=== PATIENT | female | born 1990 | race African-American/Black ===

== ENCOUNTER 2017-01-07 14:58 | Inpatient (IN) | payer MEDICAID ==
[2017-01-07] MEDS ORDERED: MINERAL OIL PO PRN (15:01)
[2017-01-07] MEDS ORDERED: BRETHINE IVP PRN (15:01)
[2017-01-07] MEDS ORDERED: BRETHINE SUB-Q PRN (15:01)
[2017-01-07] MEDS ORDERED: SUBLIMAZE IV PRN (15:01)
[2017-01-07] MEDS ORDERED: XYLOCAINE 2% INFILTRATI ONE (15:01)
--- NOTE | 2017-01-07 15:10 | History and Physical Report ---
History of Present Illness Date of examination: 01/07/17 Date of admission: 01/07/17 14:58 Chief complaint: I was 5 cm in the office today History of present illness: 26 y/o now 40.3 weeks, now 5 cm in the office today. 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 GBS neg. Past History Past Medical History: other (Hypothyroidism) Past Surgical History: no surgical history [employer] History: trichomonas Family/Genetic History: none Social history: no significant social history - Obstetrical History Expected Date of Delivery: 01/04/17 Actual Gestation: 40 Week(s) 3 Day(s) : 3 Number of Living Children: 2 Medications and Allergies Allergies Allergy/AdvReac Type Severity Reaction Status Date / Time No Known Allergies Allergy Unverified 01/07/17 15:38 Home Medications Medication Instructions Recorded Confirmed Last Taken Type Levothyroxine [Synthroid] 25 mcg PO QAM 01/07/17 01/07/17 01/07/17 History Pnv with Ca,No.72/Iron/FA [Pnv 1 each PO ONCE 01/07/17 01/07/17 01/07/17 History Plus Multivit Tab] Review of Systems All systems: negative - Physical Exam Breasts: Positive: deferred Cardiovascular: Regular rate Lungs: Positive: Clear to auscultation Abdomen: Positive: soft Genitourinary (Female): Positive: normal external genitalia Vulva: both: normal Vagina: Positive: normal moisture Uterus: Positive: enlarged Anus/Rectum: Positive: normal perianal skin Deep Tendon Reflex Grade: Normal +2 - Obstetrical FHR: category 1 Uterine Contraction Monitor Mode: External Cervical Dilatation: 5 (arom, clear fluid 1700) Cervical Effacement Percentage: 80 station: 0 Uterine Contraction Pattern: Irregular Uterine Contraction Intensity: Mild Results Result Diagrams: 01/07/17 15:45 All other labs normal. Assessment and Plan A: 40.2 weeks at 5 cm P: Labor augmentation
[2017-01-07] MEDS ORDERED: ePHEDrine SULFATE IV PRN ×2 (15:45→19:19)
[2017-01-07] MEDS ORDERED: PITOCin/NS 20 UNIT/1000ML DRIP 20 UNITS/1,000 ML BAG IV SCH (16:00)
[2017-01-07] MEDS ORDERED: PITOCin/NS 30 UNIT/500ML 30 UNITS/500 ML BAG IV SCH (16:00)
[2017-01-07 16:02] LABS: Hematocrit 39.3 % (30.3-42.9); Hemoglobin 12.9 gm/dl (10.1-14.3); Mean Corpuscular HGB Conc 33 % (30-34); Mean Corpuscular Hemoglobin 28 pg (28-32); Mean Corpuscular Volume 86 fl (79-97); Platelet Count 207 K/mm3 (140-440); Red Blood Count 4.59 M/mm3 (3.65-5.03); Red Cell Distribution Width 13.8 % (13.2-15.2); White Blood Count 11.2 K/mm3 (4.5-11.0)
[2017-01-07] MEDS: PITOCin/NS 30 UNIT/500ML 30 UNITS/500 ML BAG IV SCH ×4 (16:35→18:37)
[2017-01-07] MEDS: LACTATED RINGERS 1,000 ML IV SCH ×3 (16:42→18:38)
[2017-01-07] MEDS ORDERED: ePHEDrine SULFATE ONE (18:21)
[2017-01-07] MEDS ORDERED: fentaNYL-BUPIV 2 MCG/ML-0.125% 200 MCG/100 ML BAG EPIDURAL ONE (19:15)
[2017-01-07] MEDS ORDERED: NARCAN 2 MG/2 ML IV PRN (19:19)
--- NOTE | 2017-01-07 19:20 | Anesthesia Consultation ---
Anesthesia Consult and Med Hx Date of service: 01/07/17 - Airway Anesthetic Teeth Evaluation: Good ROM Head & Neck: Adequate Mental/Hyoid Distance: Adequate Mallampati Class: Class II Intubation Access Assessment: Probably Good - Pulmonary Exam CTA: Yes - Cardiac Exam Cardiac Exam: RRR - Pre-Operative Health Status ASA Pre-Surgery Classification: ASA2 Proposed Anesthetic Plan: Epidural, Spinal - Pulmonary Hx Asthma: No COPD: No Hx Pneumonia: No - Cardiovascular System Hx Hypertension: No - Central Nervous System Hx Seizures: No Hx Psychiatric Problems: No - Endocrine Hx Renal Disease: No Hx End Stage Renal Disease: No Hx Hypothyroidism: Yes (2011; synthroid) Hx Hyperthyroidism: No - Hematic Hx Anemia: No Hx Sickle Cell Disease: No - Other Systems Hx Alcohol Use: No
[2017-01-07] MEDS ORDERED: ZOFRAN ONE (19:26)
[2017-01-07] MEDS ORDERED: ZOFRAN IV ONE (19:39)
--- NOTE | 2017-01-07 19:58 | Procedure Note ---
OB Delivery Note - Delivery Date of Delivery: 01/07/17 Surgeon: CAIO SANCHEZ Estimated blood loss: 100cc - Vaginal Delivery presentation: vertex Delivery position: OA Delivery augmentation: rupture of membranes, pitocin Delivery monitor: external FHT Route of delivery: Delivery placenta: spontaneous Delivery cord: nuchal cord, 3 umbilical vessels Episiotomy: none Delivery laceration: none Anesthesia: epidural Delivery comments: of a viable female 7# 11 oz on January 07 @ 1945 over intact perineum. Nuchal cord x1 loose reduced. 9/9.FF@ U-2, lochia small. MOther and baby doing well - A at 1 minute: 9 at 5 minutes: 9
[2017-01-07] MEDS ORDERED: BENADRYL PO PRN (19:59)
[2017-01-07] MEDS ORDERED: LANSINOH TP PRN (19:59)
[2017-01-07] MEDS ORDERED: PHENERGAN PO PRN (19:59)
[2017-01-07] MEDS ORDERED: TYLENOL PO PRN (19:59)
[2017-01-07] MEDS ORDERED: SODIUM CHLORIDE FLUSH SYRINGE 10 ML IV SCH (20:00)
[2017-01-07] MEDS ORDERED: fentaNYL-BUPIV 2 MCG/ML-0.125% 200 MCG/100 ML BAG EPIDURAL SCH (20:00)
[2017-01-07] MEDS: MOTRIN PO SCH (21:26)
[2017-01-08] MEDS: MOTRIN PO SCH ×4 (06:56→17:48)
[2017-01-08 08:52] LABS: Hematocrit 34.7 % (30.3-42.9); Hemoglobin 11.4 gm/dl (10.1-14.3)
[2017-01-08] MEDS: NORCO 5/325 PO PRN (09:20)
--- NOTE | 2017-01-08 12:04 | Progress Note ---
Subjective Date of service: 01/08/17 Interval history: 1st day after normal vaginal delivery Patient is in the bed, comfortable. Pain is well controlled with pain meds. No pruritus . Ambulated well. No residual neurological deficit. No anesthesia complications Objective - Constitutional Vitals: Vital Signs - 12hr 01/08/17 01/08/17 04:15 08:00 Temperature 98.0 F 98.6 F Pulse Rate [ 66 54 L From Monitor] Respiratory 20 18 Rate Blood Pressure 105/52 135/67 [Left Arm] - Labs CBC & Chem 7: 01/08/17 08:30 Labs: Abnormal lab results 01/07/17 Range/Units 15:45 WBC 11.2 H (4.5-11.0) K/mm3
--- NOTE | 2017-01-08 12:29 | Progress Note ---
Assessment and Plan A: PPD #1 - stable P; Discharge home in am Subjective - Subjective Date of service: 01/08/17 Principal diagnosis: Interval history: 26 y/o now 40.3 weeks, now 5 cm in the office today. 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 GBS neg. Patient reports: appetite normal [place]: doing well Objective - Vital Signs Latest vital signs: Vital Signs Temp Pulse Pulse Resp BP BP Pulse Ox 01/08/17 08:00 98.6 F 54 L 18 135/67 01/08/17 04:15 98.0 F 66 20 105/52 01/07/17 22:45 97.7 F 69 20 149/87 01/07/17 21:23 70 115/72 01/07/17 21:08 71 133/69 01/07/17 20:53 73 122/65 01/07/17 20:38 68 128/84 01/07/17 20:23 75 132/74 01/07/17 20:08 67 129/69 01/07/17 20:05 71 128/74 01/07/17 19:32 68 99 0505/17 19:27 69 99 0517 19:24 64 119/77 050517 19:22 69 100 050517 19:17 67 100 0505/17 19:12 68 100 05 19:07 67 99 0505/17 19:02 71 100 0517 18:57 69 99 0505/17 18:53 68 111/67 05 18:52 67 111/68 99 0505/17 18:49 72 115/64 050517 18:47 72 123/71 99 05/17 18:42 71 141/78 100 0505/17 18:37 62 132/70 100 050517 18:32 74 100 0505/17 17:35 18 05 16:34 75 97 0505/17 16:29 81 97 0505/17 16:24 74 97 05/17 16:19 74 96 0505/17 16:14 77 97 05/05/17 16:09 76 96 0505/17 16:04 72 97 0505/17 15:59 83 97 05/05/17 15:54 80 97 01/07/17 15:49 79 97 01/07/17 15:44 83 96 01/07/17 15:39 97.9 F 84 86 18 120/77 95 01/07/17 15:34 85 95 01/07/17 15:29 83 94 01/07/17 15:24 91 H 94 01/07/17 15:22 89 94 01/07/17 15:19 92 H 120/77 94 Intake and Output 01/07/17 01/08/17 01/08/17 22:59 06:59 14:59 Intake Total 2240 480 480 Output Total 900 700 Balance 2240 -420 -220 Intake: IV 2000 Lactated Ringers 1,000 ml 2000 @ 125 mls/hr IV DIRECT ISELA Rx#:[id number] Oral 240 480 480 Output: Urine 900 700 Void 900 700 Other: Total, Intake Amount 240 240 480 Total, Output Amount 400 700 # Voids Void 1 Weight 197 lb - Exam Breasts: Present: deferred Cardiovascular: Present: Regular rate Abdomen: Present: soft Vulva: both: normal Uterus: Present: fundal height below umbilicus Extremities: Present: normal Deep Tendon Reflex Grade: Normal +2 - Labs Labs: Abnormal lab results 01/07/17 Range/Units 15:45 WBC 11.2 H (4.5-11.0) K/mm3
--- NOTE | 2017-01-08 12:31 | Discharge Summary ---
Providers - Providers Date of Admission: 01/07/17 14:58 Date of discharge: 01/09/17 Attending physician: ILIANA LARA MD Primary care physician: ILIANA LARA MD Hospitalization Delivery: Episiotomy: none Laceration: none Other procedures: none complications: none Discharge diagnosis: IUP at term delivered [place] baby: female Condition at discharge: Good Disposition: DISCHARGED TO HOME OR SELFCARE Plan - Provider Discharge Summary Activity: routine, no sex for 6 weeks, no heavy lifting 4 weeks, no strenuous exercise Diet: routine Instructions: routine Additional instructions: [] Smoking cessation referral if applicable(refer to patient education folder for contact #) [] Refer to [facility] Book[facility] Call your doctor immediately for: * Fever > 100.5 * Heavy vaginal bleeding ( >1 pad per hour) * Severe persistent headache * Shortness of breath * Reddened, hot, painful area to leg or breast * Drainage or odor from incision. * Keep incision clean and dry at all times and follow doctor's instructions regarding bathing/showering - Follow up plan Follow up: [facility] [Provider Group] - 6 Weeks
[2017-01-09] MEDS: NORCO 5/325 PO PRN (00:43)
[2017-01-09] MEDS: MOTRIN PO SCH ×3 (00:43→12:14)
[2017-01-09 17:40] VITALS: BP 103/66
== END 2017-01-09 17:30 | disposition home or self-care (01) | DRG 775 ==
LOC: LD 14:58 → OB 22:13
PROVIDERS: ADMIT Obstetrics & Gynecology; ATTEND Obstetrics & Gynecology
PROC: 10E0XZZ Delivery of Products of Conception, External Approach (ICD-10-PCS; principal; 2017-01-07)
PROC: 3E0S3CZ (ICD-10-PCS; 2017-01-07)
PROC: 00HU33Z Insertion of Infusion Device into Spinal Canal, Percutaneous Approach (ICD-10-PCS; 2017-01-07)
DX: O69.81X0 Labor and delivery complicated by cord around neck, without compression, not applicable or unspecified (principal); O99.284 Endocrine, nutritional and metabolic diseases complicating childbirth; E03.9 Hypothyroidism, unspecified; Z3A.40 40 weeks gestation of pregnancy; Z37.0 Single live birth
CPT/HCPCS: 36415; 85014; 85018; 85027; 86850; 86900; 86901; J2405; J2590; J3010; J7120

== ENCOUNTER 2019-01-14 01:59 | Inpatient (IN) | payer MEDICAID ==
[2019-01-14] MEDS ORDERED: MINERAL OIL PO PRN (02:52)
[2019-01-14] MEDS ORDERED: BRETHINE SUB-Q PRN (02:52)
[2019-01-14] MEDS ORDERED: SUBLIMAZE IV PRN (02:52)
[2019-01-14] MEDS ORDERED: XYLOCAINE 2% INFILTRATI ONE (02:52)
[2019-01-14] MEDS ORDERED: PITOCin/NS 30 UNIT/500ML 30 UNITS/500 ML BAG IV SCH ×2 (03:00→08:00)
[2019-01-14] MEDS ORDERED: PITOCin/NS 20 UNIT/1000ML DRIP 20 UNITS/1,000 ML BAG IV SCH (03:00)
--- NOTE | 2019-01-14 03:00 | History and Physical Report ---
History of Present Illness Date of examination: 01/14/19 Date of admission: 01/14/19 02:50 Chief complaint: Labor History of present illness: 28 year old presented to L&D in labor. Patient denies leaking of fluid or vaginal bleeding. Patient reports active movement. LMP 07/09/2018. EDC 01/18/2019. Patient received care at [facility]; limited records are available. significant for the following: trichomonas, late care, limited care. labs are as follows: O+, antibody screen negative, pap negative, rubella immune, RPR nonreactive, hepatitis B surface antigen negative, HIV negative, hemoglobin electrophoresis AA, GC negative, CT negative, trichomonas positive, GBS negative, hemoglobin A1C 5.4. Past History Past Medical History: thyroid disease (subclinical hypothyroidism), other (Vitamin D deficiency) Past Surgical History: no surgical history [facility]DER History: trichomonas (treated during ). denies: abnormal PAP smear, chlamydia, gonorrhea, hepatitis B, hepatitis C, herpes, HIV, syphilis Family/Genetic History: diabetes, cancer Social history: lives with family, full code. denies: smoking, alcohol abuse, prescription drug abuse, IV drug use - Obstetrical History Expected Date of Delivery: 01/18/19 Actual Gestation: 39 Week(s) 3 Day(s) : 4 Para: 3 Hx # Term Pregnancies: 4 Number of Pregnancies: 0 Spontaneous Abortions: 0 Induced : 0 Number of Living Children: 3 Medications and Allergies Allergies Allergy/AdvReac Type Severity Reaction Status Date / Time No Known Allergies Allergy Unverified 01/07/17 15:38 Home Medications Medication Instructions Recorded Confirmed Last Taken Type Levothyroxine [Synthroid] 25 mcg PO QAM 01/07/17 01/07/17 01/07/17 History Pnv,Calcium 72/Iron/Folic Acid 1 each PO ONCE 01/07/17 01/07/17 01/07/17 History [Pnv Plus Multivit Tab] Active Meds: Active Medications Ephedrine Sulfate (Ephedrine Sulfate) 10 mg IV Q2M PRN PRN Reason: Hypotension Fentanyl (Sublimaze) 100 mcg IV Q2H PRN PRN Reason: Labor Pain Oxytocin/Sodium Chloride (Pitocin/Ns 20 Unit/1000ml Drip) 20 units in 1,000 mls @ 125 mls/hr IV DIRECT ISELA Oxytocin/Sodium Chloride (Pitocin/Ns 30 Unit/500ml) 30 units in 500 mls @ 1 mls/hr IV TITR ISELA; Protocol Lactated Ringer's (Lactated Ringers) 1,000 mls @ 125 mls/hr IV DIRECT ISELA Mineral Oil (Mineral Oil) 30 ml PO QHS PRN PRN Reason: Constipation Terbutaline Sulfate (Brethine) 0.25 mg SUB-Q ONCE PRN PRN Reason: Hyperstimulation/Hypertonicity Review of Systems All systems: negative (contractions) - Vital Signs Vital signs: Vital Signs Pulse BP 81 121/79 01/14/19 02:16 01/14/19 02:16 Temp Pulse Resp BP Pulse Ox 81 121/79 01/14/19 02:16 01/14/19 02:16 - Physical Exam Abdomen: Positive: normal appearance, soft. Negative: distention, tenderness, guarding, rigidity Genitourinary (Female): Positive: normal external genitalia, normal perenium. Negative: perineal/vulvar lesions Vagina: Positive: normal moisture Uterus: Positive: enlarged. Negative: tender Anus/Rectum: Positive: normal perianal skin Extremities: Positive: normal. Negative: tenderness, edema - Obstetrical FHR: category 1 Uterine Contraction Monitor Mode: External Cervical Dilatation: 4 Cervical Effacement Percentage: 60 station: -2 Uterine Contraction Pattern: Regular Uterine Contraction Intensity: Moderate Results All other labs normal. Assessment and Plan A: at 39 weeks, 3 days gestation. GBS negative. Labor. P: Admit. Continuous EFM. Anticipate vaginal .
[2019-01-14] MEDS: LACTATED RINGERS 1,000 ML IV SCH ×2 (04:25→05:37)
[2019-01-14 04:58] LABS: Hematocrit 35.1 % (30.3-42.9); Hemoglobin 11.8 gm/dl (10.1-14.3); Mean Corpuscular HGB Conc 34 % (30-34); Mean Corpuscular Volume 80 fl (79-97); Platelet Count 205 K/mm3 (140-440); Red Blood Count 4.41 M/mm3 (3.65-5.03); Red Cell Distribution Width 14.4 % (13.2-15.2)
--- NOTE | 2019-01-14 08:08 | Event Note ---
Date: 01/14/19 at 39 weeks, 3 days gestation in labor. Patient requests pain medication. SVE 4.5/60/-2. Patient states contractions are every 2-5 minutes. Pitocin augmentation orders put in for pt. Discussed with patient risks/benefits of augmentation of labor with Pitocin. Patient consented to augmentation of labor with Pitocin.
[2019-01-14] MEDS ORDERED: NARCAN 2 MG/2 ML IV PRN (14:07)
--- NOTE | 2019-01-14 14:07 | Anesthesia Consultation ---
Anesthesia Consult and Med Hx - Airway Anesthetic Teeth Evaluation: Good ROM Head & Neck: Adequate Mental/Hyoid Distance: Adequate Mallampati Class: Class II Intubation Access Assessment: Probably Good - Pulmonary Exam CTA: Yes - Cardiac Exam Cardiac Exam: RRR - Pre-Operative Health Status ASA Pre-Surgery Classification: ASA2 Proposed Anesthetic Plan: Epidural - Pulmonary Hx Smoking: No Hx Asthma: No Hx Respiratory Symptoms: No COPD: No Hx Pneumonia: No - Cardiovascular System Hx Hypertension: No Hx Heart Attack/AMI: No Hx Angina: No Hx Percutaneous Transluminal Coronary Angioplasty (PTCA): No Hx Cardia Arrhythmia: No Hx Pacemaker: No Hx Internal Defibrillator: No Hx Valvular Heart Disease: No Hx Heart Murmur: No Hx Peripheral Vascular Disease: No - Central Nervous System Hx Neuromuscular Disorder: No Hx Seizures: No CVA: No Hx Back Pain: No Hx Psychiatric Problems: No - Endocrine Hx Renal Disease: No Hx End Stage Renal Disease: No Hx Cirrhosis: No Hx Liver Disease: No Hx Insulin Dependent Diabetes: No Hx Hypothyroidism: Yes (2011) Hx Hyperthyroidism: No - Hematic Hx Anemia: No Hx Sickle Cell Disease: No - Other Systems Hx Alcohol Use: No
--- NOTE | 2019-01-14 14:07 | Anesthesia Day of Surgery ---
Anesthesia Day of Surgery - Day of Surgery Patient Examined: Yes Patient H&P Reviewed: Yes Patient is NPO: Yes Beta Blockers: No Cardiac Clearance: No Pulmonary Clearance: No Pierre's Test: N/A
[2019-01-14] MEDS ORDERED: MARCAINE 0.25% INFILTRATI ONE (14:12)
[2019-01-14] MEDS ORDERED: fentaNYL-BUPIV 2 MCG/ML-0.125% 200 MCG/100 ML BAG EPIDURAL SCH (15:00)
--- NOTE | 2019-01-14 15:40 | Event Note ---
Date: 01/14/19 Patient received epidural and was given ephedrine by anesthesia due to hypotension. After ephedrine was given, tachycardia was noted (180s-190s). FSE applied to better trace heart beat as unable to trace with external monitor. Large amount of clear fluid obtained. After period of tachycardia, patient had several variable FHR decelerations and period of marked variability with return to previous FHR baseline of 125. Variability now moderate. Patient has remained afebrile. SVE 4.5/70/-1. Consult[address] James re: all of the above and FHR tracing and interventions taken (lateral positioning, oxygen, discontinuation of oxytocin). Will observe patient closely. Discussed plan of care with patient and family.
[2019-01-14] MEDS ORDERED: LANSINOH TP PRN (23:08)
[2019-01-14] MEDS ORDERED: TUCKS PAD TP PRN (23:08)
[2019-01-14] MEDS ORDERED: MILK OF MAGNESIA PO PRN (23:08)
[2019-01-14] MEDS ORDERED: DULCOLAX PR PRN (23:08)
--- NOTE | 2019-01-14 23:11 | Procedure Note ---
OB Delivery Note - Delivery Date of Delivery: 01/14/19 Surgeon: MATTY PATEL Estimated blood loss: 300cc - Vaginal Delivery presentation: vertex Delivery position: OA Delivery induction: none Delivery augmentation: rupture of membranes Delivery monitor: external FHT, external uterine Delivery placenta: spontaneous, manual Delivery cord: 3 umbilical vessels Episiotomy: none Delivery laceration: none Anesthesia: epidural Delivery comments: Spontaneous vaginal delivery at 22:31 of liveborn male weighing 8 lbs. 13 oz. overi intact perineum with apgars of 8/9. Baby placed immediately skin to skin with mom after . Spontaneous cry and respirations. 3 vessel cord double clamped and cut. Spontaneous delivery of intact placenta and membranes. EBL 350 cc. Fundus firm and midline after delivery of placenta. Vaginal sweep negative. No lacerations. Sponge count correct.
[2019-01-14] MEDS: IBUPROFEN PO SCH (23:31)
[2019-01-14] MEDS ORDERED: SODIUM CHLORIDE FLUSH SYRINGE 10 ML IV PRN (23:45)
--- NOTE | 2019-01-15 00:13 | Progress Note ---
Subjective Date of service: 01/15/19 Interval history: Epid cath intrathecal. Only anesthesia will use, no pump in room. Pt comfortable, will remove myself after 24 hours. Objective - Constitutional Vitals: Vital Signs - 12hr 01/14/19 01/14/19 01/14/19 12:24 12:54 13:24 Pulse Rate 72 70 72 Blood Pressure 108/56 101/55 101/51 O2 Sat by Pulse Oximetry 01/14/19 01/14/19 01/14/19 13:54 14:17 14:22 Pulse Rate 73 80 74 Blood Pressure 98/56 O2 Sat by Pulse 99 99 Oximetry 01/14/19 01/14/19 01/14/19 14:24 14:27 14:29 Pulse Rate 83 75 80 Blood Pressure 145/100 135/79 134/82 O2 Sat by Pulse 99 Oximetry 01/14/19 01/14/19 01/14/19 14:32 14:35 14:38 Pulse Rate 78 80 91 H Blood Pressure 153/72 137/60 113/54 O2 Sat by Pulse 100 100 Oximetry 01/14/19 01/14/19 01/14/19 14:41 14:43 14:45 Pulse Rate 111 H 90 80 Blood Pressure 102/65 172/106 O2 Sat by Pulse 100 Oximetry 01/14/19 01/14/19 01/14/19 14:48 14:49 14:53 Pulse Rate 114 H 120 H 98 H Blood Pressure 110/65 123/75 O2 Sat by Pulse 99 98 Oximetry 01/14/19 01/14/19 01/14/19 14:56 14:58 14:59 Pulse Rate 114 H 69 96 H Blood Pressure 122/72 139/70 O2 Sat by Pulse 100 Oximetry 01/14/19 01/14/19 01/14/19 15:03 15:07 15:08 Pulse Rate 71 112 H 94 H Blood Pressure O2 Sat by Pulse 97 94 98 Oximetry 01/14/19 01/14/19 01/14/19 15:11 15:13 15:17 Pulse Rate 120 H 89 94 H Blood Pressure 109/66 115/63 O2 Sat by Pulse 98 Oximetry 01/14/19 01/14/19 01/14/19 15:18 15:20 15:21 Pulse Rate 91 H 94 H 90 Blood Pressure 116/70 O2 Sat by Pulse 98 94 Oximetry 01/14/19 01/14/19 01/14/19 15:23 15:27 15:28 Pulse Rate 94 H 79 85 Blood Pressure 129/66 O2 Sat by Pulse 98 98 Oximetry 01/14/19 01/14/19 01/14/19 15:33 15:37 15:38 Pulse Rate 90 96 H 74 Blood Pressure 122/61 118/67 O2 Sat by Pulse 98 99 Oximetry 01/14/19 01/14/19 01/14/19 15:41 15:43 15:47 Pulse Rate 81 92 H 69 Blood Pressure 115/59 108/56 O2 Sat by Pulse 98 Oximetry 01/14/19 01/14/19 01/14/19 15:48 15:53 15:56 Pulse Rate 92 H 94 H 91 H Blood Pressure 102/55 108/74 O2 Sat by Pulse 100 100 Oximetry 01/14/19 01/14/19 01/14/19 15:58 16:02 16:03 Pulse Rate 85 80 88 Blood Pressure 114/65 O2 Sat by Pulse 100 100 Oximetry 01/14/19 01/14/19 01/14/19 16:06 16:08 16:11 Pulse Rate 81 77 86 Blood Pressure 117/70 110/68 O2 Sat by Pulse 100 Oximetry 01/14/19 01/14/19 01/14/19 16:13 16:18 16:21 Pulse Rate 79 79 78 Blood Pressure 94/56 115/71 O2 Sat by Pulse 100 100 Oximetry 01/14/19 01/14/19 01/14/19 16:23 16:26 16:28 Pulse Rate 71 80 88 Blood Pressure 112/72 O2 Sat by Pulse 100 100 Oximetry 01/14/19 01/14/19 01/14/19 16:33 16:38 16:43 Pulse Rate 79 73 83 Blood Pressure O2 Sat by Pulse 100 99 98 Oximetry 01/14/19 01/14/19 01/14/19 17:10 17:15 17:20 Pulse Rate 73 74 81 Blood Pressure 126/74 O2 Sat by Pulse 97 99 99 Oximetry 01/14/19 01/14/19 01/14/19 17:25 17:30 17:35 Pulse Rate 84 84 89 Blood Pressure 115/76 O2 Sat by Pulse 99 98 98 Oximetry 05/12/19 05/12/19 05/12/19 17:40 17:45 17:50 Pulse Rate 84 84 85 Blood Pressure 93/52 O2 Sat by Pulse 97 98 99 Oximetry 01/14/19 01/14/19 01/14/19 17:55 18:00 18:05 Pulse Rate 87 89 88 Blood Pressure 121/77 O2 Sat by Pulse 98 99 98 Oximetry 01/14/19 01/14/19 01/14/19 18:07 18:10 18:15 Pulse Rate 80 77 84 Blood Pressure 117/78 O2 Sat by Pulse 92 95 97 Oximetry 01/14/19 01/14/19 01/14/19 18:20 18:25 18:30 Pulse Rate 75 81 85 Blood Pressure 120/80 O2 Sat by Pulse 97 96 97 Oximetry 01/14/19 01/14/19 01/14/19 18:35 18:40 18:43 Pulse Rate 81 89 88 Blood Pressure 109/62 110/75 O2 Sat by Pulse 98 98 Oximetry 01/14/19 01/14/19 01/14/19 18:45 18:49 18:50 Pulse Rate 94 H 76 77 Blood Pressure 113/61 O2 Sat by Pulse 96 97 Oximetry 01/14/19 01/14/19 01/14/19 18:53 18:55 18:58 Pulse Rate 75 73 77 Blood Pressure 113/63 119/65 O2 Sat by Pulse 96 Oximetry 01/14/19 01/14/19 01/14/19 19:00 19:03 19:05 Pulse Rate 73 71 74 Blood Pressure 119/67 O2 Sat by Pulse 96 97 Oximetry 01/14/19 01/14/19 01/14/19 19:08 19:10 19:13 Pulse Rate 78 82 83 Blood Pressure 116/68 118/67 O2 Sat by Pulse 97 Oximetry 01/14/19 01/14/19 01/14/19 19:15 19:18 19:20 Pulse Rate 75 74 81 Blood Pressure 116/69 O2 Sat by Pulse 97 97 Oximetry 01/14/19 01/14/19 01/14/19 19:23 19:25 19:29 Pulse Rate 78 80 85 Blood Pressure 114/70 114/68 O2 Sat by Pulse 99 Oximetry 01/14/19 01/14/19 01/14/19 19:30 19:33 19:35 Pulse Rate 78 83 76 Blood Pressure 119/68 O2 Sat by Pulse 97 97 Oximetry 01/14/19 01/14/19 01/14/19 19:38 19:40 19:44 Pulse Rate 80 89 72 Blood Pressure 121/68 124/60 O2 Sat by Pulse 100 Oximetry 01/14/19 01/14/19 01/14/19 19:45 19:48 19:49 Pulse Rate 85 74 87 Blood Pressure 121/69 O2 Sat by Pulse 98 89 Oximetry 01/14/19 01/14/19 01/14/19 19:50 19:53 19:55 Pulse Rate 76 82 74 Blood Pressure 124/69 O2 Sat by Pulse 99 98 Oximetry 01/14/19 01/14/19 01/14/19 19:58 20:00 20:03 Pulse Rate 78 78 84 Blood Pressure 125/78 130/79 129/81 O2 Sat by Pulse 99 Oximetry 01/14/19 01/14/19 01/14/19 20:05 20:09 20:10 Pulse Rate 78 80 85 Blood Pressure 115/66 O2 Sat by Pulse 98 98 Oximetry 01/14/19 01/14/19 01/14/19 20:14 20:15 20:18 Pulse Rate 78 78 82 Blood Pressure 111/56 99/54 O2 Sat by Pulse 98 Oximetry 01/14/19 01/14/19 01/14/19 20:20 20:23 20:25 Pulse Rate 87 83 81 Blood Pressure 105/57 O2 Sat by Pulse 99 91 99 Oximetry 01/14/19 01/14/19 01/14/19 20:28 20:30 20:33 Pulse Rate 76 79 76 Blood Pressure 112/70 111/60 O2 Sat by Pulse 98 Oximetry 01/14/19 01/14/19 01/14/19 20:35 20:39 20:40 Pulse Rate 77 76 77 Blood Pressure 112/59 O2 Sat by Pulse 97 97 Oximetry 01/14/19 01/14/19 01/14/19 20:44 20:45 20:48 Pulse Rate 80 87 81 Blood Pressure 110/61 106/59 O2 Sat by Pulse 100 Oximetry 01/14/19 01/14/19 01/14/19 20:50 20:54 20:55 Pulse Rate 74 81 71 Blood Pressure 125/67 O2 Sat by Pulse 100 80 L 100 Oximetry 01/14/19 01/14/19 01/14/19 20:58 21:00 21:03 Pulse Rate 80 72 77 Blood Pressure 120/68 128/75 O2 Sat by Pulse 99 Oximetry 01/14/19 01/14/19 01/14/19 21:05 21:08 21:10 Pulse Rate 78 81 77 Blood Pressure 127/75 O2 Sat by Pulse 98 97 Oximetry 01/14/19 01/14/19 01/14/19 21:13 21:15 21:18 Pulse Rate 76 78 80 Blood Pressure 127/71 154/93 O2 Sat by Pulse 97 Oximetry 01/14/19 01/14/19 01/14/19 21:20 21:23 21:25 Pulse Rate 85 84 79 Blood Pressure 144/85 O2 Sat by Pulse 99 100 Oximetry 01/14/19 01/14/19 01/14/19 21:28 21:30 21:33 Pulse Rate 80 78 78 Blood Pressure 139/87 146/89 O2 Sat by Pulse 98 Oximetry 01/14/19 01/14/19 01/14/19 21:35 21:39 21:40 Pulse Rate 84 90 93 H Blood Pressure 160/100 O2 Sat by Pulse 99 99 Oximetry 01/14/19 01/14/19 01/14/19 21:43 21:45 21:49 Pulse Rate 84 85 95 H Blood Pressure 125/57 O2 Sat by Pulse 84 98 Oximetry 01/14/19 01/14/19 01/14/19 21:50 21:53 21:55 Pulse Rate 77 75 68 Blood Pressure 117/62 O2 Sat by Pulse 99 100 Oximetry 01/14/19 01/14/19 01/14/19 21:58 22:00 22:05 Pulse Rate 82 73 70 Blood Pressure 107/63 O2 Sat by Pulse 100 100 Oximetry 01/14/19 01/14/19 01/14/19 22:10 22:16 22:21 Pulse Rate 85 86 75 Blood Pressure O2 Sat by Pulse 98 99 100 Oximetry 01/14/19 01/14/19 01/14/19 23:06 23:20 23:35 Pulse Rate 71 69 69 Blood Pressure 129/77 115/67 120/71 O2 Sat by Pulse Oximetry 01/14/19 01/15/19 23:50 00:06 Pulse Rate 74 83 Blood Pressure 130/66 110/69 O2 Sat by Pulse Oximetry - Labs CBC & Chem 7: 01/14/19 Unknown Labs: Abnormal lab results 01/14/19 Range/Units Unknown WBC 13.4 H (4.5-11.0) K/mm3 MCH 27 L (28-32) pg Medications & Allergies - Medications Allergies/Adverse Reactions: Allergies No Known Allergies Allergy (Unverified 01/07/17 15:38) Home Medications: Home Medications Medication Instructions Recorded Confirmed Last Taken Type Levothyroxine [Synthroid] 25 mcg PO QAM 01/07/17 01/07/17 01/07/17 History Pnv,Calcium 72/Iron/Folic Acid 1 each PO ONCE 01/07/17 01/07/17 01/07/17 History [Pnv Plus Multivit Tab] Active Medications: Generic Name Dose Route Start Last Admin Trade Name Freq PRN Reason Stop Dose Admin Acetaminophen/Hydrocodone Bitart 2 each 01/14/19 23:08 [place] 5/325 PO Q6H PRN Pain, Moderate (4-6) Bisacodyl 10 mg 01/14/19 23:08 Dulcolax ME BID PRN Constipation Ephedrine Sulfate 10 mg 01/14/19 14:07 Ephedrine Sulfate IV Q2M PRN Hypotension Fentanyl 100 mcg 01/14/19 02:52 01/14/19 08:29 Sublimaze IV 100 mcg Q2H PRN Administration Labor Pain Oxytocin/Sodium Chloride 20 units in 1,000 mls @ 125 mls/hr 01/14/19 03:00 01/14/19 23:32 Pitocin/Ns 20 Unit/1000ml Drip IV 125 mls/hr DIRECT ISELA Administration Lactated Ringer's 1,000 mls @ 125 mls/hr 01/14/19 03:00 01/14/19 05:37 Lactated Ringers IV 125 mls/hr DIRECT ISELA Administration Oxytocin/Sodium Chloride 30 units in 500 mls @ 0 mls/hr 01/14/19 08:00 01/14/19 13:05 Pitocin/Ns 30 Unit/500ml IV 6 ml/hr TITR ISELA 6 mls/hr Titration Protocol Per Protocol Fentanyl/Bupivacaine/Sodium Chlor 200 mcg in 100 mls @ 12 mls/hr 01/14/19 15:00 Fentanyl-Bupiv 2 Mcg/Ml-0.125% EPIDURAL TITR ISLEA Protocol Ibuprofen 600 mg 01/14/19 23:45 01/14/19 23:31 Motrin PO 600 mg Q6HR ISELA Administration Magnesium Hydroxide 30 ml 01/14/19 23:08 Milk Of Magnesia PO HS PRN Constipation Mineral Oil 30 ml 01/14/19 02:52 Mineral Oil PO QHS PRN Constipation Multi-Ingredient Ointment 1 applic 01/14/19 23:08 Lansinoh TP PRN PRN Sore Nipples Naloxone HCl 0.2 mg 01/14/19 14:07 Narcan 2 Mg/2 Ml IV Q5M PRN Respiratory sedation Sodium Chloride 10 ml 01/14/19 23:45 Sodium Chloride Flush Syringe 10 Ml IV PRN PRN LINE FLUSH Terbutaline Sulfate 0.25 mg 01/14/19 02:52 Brethine SUB-Q ONCE PRN Hyperstimulation/Hypertonicity Witch Teri/Glycerin 1 each 01/14/19 23:08 Tucks Pad TP PRN PRN Hemorrhoid/cleansing/soothing
--- NOTE | 2019-01-15 00:14 | Post Anesthesia Evaluation ---
- Post Anesthesia Evaluation Patient Participated: Yes Airway Patent: Yes Stable Respiratory Function: Yes Nausea/Vomiting: No Temp > 96.8F: Yes Pain Manageable: Yes Adequeate Hydration: Yes Anesthesia Complications: No Block Receding Appropriately: Yes Patient on Ventilator: No Other Comments: will remove epid cath tomorrow am.
[2019-01-15] MEDS: IBUPROFEN PO SCH ×3 (06:36→21:07)
[2019-01-15] MEDS: NORCO 5/325 PO PRN ×4 (06:37→21:07)
--- NOTE | 2019-01-15 10:21 | Progress Note ---
Assessment and Plan - Patient Problems (1) Status post normal vaginal delivery Current Visit: Yes Status: Acute Plan to address problem: PPD 1 - stable Continue routine PP orders Anticipate discharge in 24 hrs pending clearance from Anesthesia Subjective - Subjective Date of service: 01/15/19 Principal diagnosis: PPD #1; s/p Interval history: see H&P, Event Notes, OB Delivery Procedure Note and Progress Note Patient reports: appetite normal, voiding normally, pain well controlled, ambulating normally, no dizzy ambulation [place]: doing well, bottle feeding Objective - Vital Signs Latest vital signs: Vital Signs Temp Pulse Resp BP BP Pulse Ox 01/15/19 08:08 97.7 F 68 18 110/70 97 01/15/19 01:43 119/76 01/15/19 01:39 98.9 F 69 20 89/64 97 01/15/19 01:00 98.9 F 69 10 L 118/80 97 01/15/19 00:45 69 20 122/77 97 01/15/19 00:36 78 112/71 01/15/19 00:30 69 16 122/77 100 01/15/19 00:20 196 H 103/56 01/15/19 00:15 80 20 110/69 97 01/15/19 00:06 83 110/69 01/15/19 00:00 82 20 120/75 97 01/14/19 23:50 74 130/66 01/14/19 23:45 77 16 116/70 01/14/19 23:35 69 120/71 01/14/19 23:30 98.9 F 69 20 116/70 97 01/14/19 23:20 69 115/67 01/14/19 23:15 80 133/60 01/14/19 23:06 71 129/77 01/14/19 23:00 69 18 116/70 97 01/14/19 22:45 97.9 F 88 16 129/77 98 01/14/19 22:21 75 100 01/14/19 22:16 86 99 01/14/19 22:10 85 98 01/14/19 22:05 70 100 01/14/19 22:00 73 100 01/14/19 21:58 82 107/63 01/14/19 21:55 68 100 01/14/19 21:53 75 117/62 01/14/19 21:50 77 99 05/12/19 21:49 95 H 125/57 01/14/19 21:45 85 98 01/14/19 21:43 84 84 01/14/19 21:40 93 H 99 01/14/19 21:39 90 160/100 01/14/19 21:35 84 99 01/14/19 21:33 78 146/89 01/14/19 21:30 78 98 01/14/19 21:28 80 139/87 01/14/19 21:25 79 100 01/14/19 21:23 84 144/85 01/14/19 21:20 85 99 01/14/19 21:18 80 154/93 01/14/19 21:15 78 97 01/14/19 21:13 76 127/71 01/14/19 21:10 77 97 01/14/19 21:08 81 127/75 01/14/19 21:05 78 98 01/14/19 21:03 77 128/75 01/14/19 21:00 72 99 01/14/19 20:58 80 120/68 01/14/19 20:55 71 100 01/14/19 20:54 81 125/67 80 L 01/14/19 20:50 74 100 01/14/19 20:48 81 106/59 01/14/19 20:45 87 100 01/14/19 20:44 80 110/61 01/14/19 20:40 77 97 01/14/19 20:39 76 112/59 01/14/19 20:35 77 97 01/14/19 20:33 76 111/60 01/14/19 20:30 79 98 01/14/19 20:28 76 112/70 01/14/19 20:25 81 99 01/14/19 20:23 83 105/57 91 01/14/19 20:20 87 99 01/14/19 20:18 82 99/54 01/14/19 20:15 78 98 01/14/19 20:14 78 111/56 01/14/19 20:10 85 98 01/14/19 20:09 80 115/66 01/14/19 20:05 78 98 01/14/19 20:03 84 129/81 01/14/19 20:00 97.8 F 88 20 130/79 126/76 100 0519 19:58 78 125/78 0519 19:55 74 98 05 19:53 82 124/69 0519 19:50 76 99 05 19:49 87 89 05 19:48 74 121/69 05 19:45 85 98 0519 19:44 72 124/60 05 19:40 89 100 05 19:38 80 121/68 05 19:35 76 97 05 19:33 83 119/68 05 19:30 78 97 05 19:29 85 114/68 05 19:25 80 99 05 19:23 78 114/70 05 19:20 81 97 01/14/19 19:18 74 116/69 05 19:15 75 97 05 19:13 83 118/67 01/14/19 19:10 82 97 05 19:08 78 116/68 05 19:05 74 97 05 19:03 71 119/67 05 19:00 73 96 05 18:58 77 119/65 05 18:55 73 96 05 18:53 75 113/63 05 18:50 77 97 05 18:49 76 113/61 05 18:45 94 H 96 01/14/19 18:43 88 110/75 05 18:40 89 109/62 98 0519 18:35 81 98 05 18:30 85 97 0519 18:25 81 120/80 96 05 18:20 75 97 05 18:15 84 97 05 18:10 77 117/78 95 05 18:07 80 92 05 18:05 88 98 05 18:00 89 99 0519 17:55 87 121/77 98 05 17:50 85 99 05 17:45 84 98 05 17:40 84 93/52 97 05 17:35 89 98 05 17:30 84 98 05 17:25 84 115/76 99 05 17:20 81 99 01/14/19 17:15 74 99 05 17:10 73 126/74 97 01/14/19 16:43 83 98 01/14/19 16:38 73 99 01/14/19 16:33 79 100 01/14/19 16:28 88 100 01/14/19 16:26 80 112/72 01/14/19 16:23 71 100 01/14/19 16:21 78 115/71 01/14/19 16:18 79 94/56 100 01/14/19 16:13 79 100 01/14/19 16:11 86 110/68 01/14/19 16:08 77 100 01/14/19 16:06 81 117/70 01/14/19 16:03 88 100 01/14/19 16:02 80 114/65 01/14/19 15:58 85 100 01/14/19 15:56 91 H 108/74 01/14/19 15:53 94 H 102/55 100 01/14/19 15:48 92 H 100 01/14/19 15:47 69 108/56 01/14/19 15:43 92 H 98 01/14/19 15:41 81 115/59 01/14/19 15:38 74 99 01/14/19 15:37 96 H 118/67 01/14/19 15:33 90 122/61 98 01/14/19 15:28 85 98 01/14/19 15:27 79 129/66 01/14/19 15:23 94 H 98 01/14/19 15:21 90 116/70 01/14/19 15:20 94 H 94 01/14/19 15:18 91 H 98 01/14/19 15:17 94 H 115/63 01/14/19 15:13 89 98 05 15:11 120 H 109/66 01/14/19 15:08 94 H 98 01/14/19 15:07 112 H 94 01/14/19 15:03 71 97 01/14/19 14:59 96 H 139/70 05 14:58 69 100 01/14/19 14:56 114 H 122/72 01/14/19 14:53 98 H 123/75 98 01/14/19 14:49 120 H 110/65 01/14/19 14:48 114 H 99 01/14/19 14:45 80 172/106 01/14/19 14:43 90 100 01/14/19 14:41 111 H 102/65 01/14/19 14:38 91 H 113/54 100 01/14/19 14:35 80 137/60 01/14/19 14:32 78 153/72 100 01/14/19 14:29 80 134/82 01/14/19 14:27 75 135/79 99 01/14/19 14:24 83 145/100 01/14/19 14:22 74 99 01/14/19 14:17 80 99 01/14/19 13:54 73 98/56 01/14/19 13:24 72 101/51 01/14/19 12:54 70 101/55 01/14/19 12:24 72 108/56 01/14/19 11:54 68 112/65 01/14/19 11:24 74 120/71 01/14/19 10:54 79 123/69 01/14/19 10:24 76 117/58 Intake and Output 01/14/19 01/15/19 01/15/19 23:59 07:59 15:59 Intake Total 480 Output Total 800 600 Balance -800 -600 480 Intake: Oral 480 Output: Urine 800 600 Indwelling Catheter 800 Void 600 Other: Total, Intake Amount 480 Total, Output Amount 800 400 # Voids Void 1 Estimated Blood Loss 300 - Exam Abdomen: Present: normal appearance, soft Vulva: both: normal Uterus: Present: normal, firm, fundal height at umbilicus Extremities: Present: normal Comments: small lochia
[2019-01-15 12:27] LABS: Hematocrit 26.8 % (30.3-42.9); Hemoglobin 8.8 gm/dl (10.1-14.3)
--- NOTE | 2019-01-15 15:32 | Progress Note ---
Subjective Date of service: 01/15/19 Principal diagnosis: PPD #1; s/p Interval history: Follow regarding intrathecal cath. Pulled cath at bedside, blue distal tip intact, verified with pt. She does have complaints of headache and neck stiffness. Advised to take pain meds, increase fluids, and caffeine products. advised to call if symptoms worsen, but we will continue to monitor. explained blood patch as last resort, if needed. Objective - Constitutional Vitals: Vital Signs - 12hr 01/15/19 01/15/19 08:08 12:00 Temperature 97.7 F 97.6 F Pulse Rate 68 75 Respiratory 18 18 Rate Blood Pressure 110/70 116/52 [Left] O2 Sat by Pulse 97 98 Oximetry - Labs CBC & Chem 7: 01/15/19 11:30 Labs: Abnormal lab results 01/15/19 Range/Units 11:30 Hgb 8.8 L D (10.1-14.3) gm/dl Hct 26.8 L D (30.3-42.9) % Medications & Allergies - Medications Allergies/Adverse Reactions: Allergies No Known Allergies Allergy (Unverified 01/07/17 15:38) Home Medications: Home Medications Medication Instructions Recorded Confirmed Last Taken Type Levothyroxine [Synthroid] 25 mcg PO QAM 01/07/17 01/15/19 07/06/18 History Pnv,Calcium 72/Iron/Folic Acid 1 each PO ONCE 01/07/17 01/15/19 01/12/19 History [Pnv Plus Multivit Tab] Active Medications: Generic Name Dose Route Start Last Admin Trade Name Freq PRN Reason Stop Dose Admin Acetaminophen/Hydrocodone Bitart 2 each 01/14/19 23:08 01/15/19 06:37 [place] 5/325 PO 2 each Q6H PRN Administration Pain, Moderate (4-6) Bisacodyl 10 mg 01/14/19 23:08 Dulcolax [place] BID PRN Constipation Ibuprofen 600 mg 01/14/19 23:45 01/15/19 06:36 Motrin PO 600 mg Q6HR ISELA Administration Magnesium Hydroxide 30 ml 01/14/19 23:08 Milk Of Magnesia PO HS PRN Constipation Multi-Ingredient Ointment 1 applic 01/14/19 23:08 Lansinoh TP PRN PRN Sore Nipples Sodium Chloride 10 ml 01/14/19 23:45 Sodium Chloride Flush Syringe 10 Ml IV PRN PRN LINE FLUSH Witch Teri/Glycerin 1 each 01/14/19 23:08 Tucks Pad TP PRN PRN Hemorrhoid/cleansing/soothing
[2019-01-16] MEDS: NORCO 5/325 PO PRN ×2 (04:17→13:15)
[2019-01-16] MEDS: IBUPROFEN PO SCH ×2 (04:18→13:15)
[2019-01-16] MEDS ORDERED: FEOSOL PO SCH (10:00)
--- NOTE | 2019-01-16 10:43 | Progress Note ---
Assessment and Plan - Patient Problems (1) Status post normal vaginal delivery Current Visit: Yes Status: Acute Plan to address problem: Continue routine PP orders Anticipate d/c home within 24-48 hrs if ok with anesthesia (2) Anemia Current Visit: Yes Status: Acute Qualifiers: Iron deficiency anemia type: other iron deficiency Qualified Code(s): D50.8 - Other iron deficiency anemias Plan to address problem: Ferrous sulfate 325 mg po BID Repeat H/H in AM (3) Hypothyroidism Current Visit: Yes Status: Acute Qualifiers: Hypothyroidism type: subclinical iodine-deficiency Qualified Code(s): E02 - Subclinical iodine-deficiency hypothyroidism Subjective - Subjective Date of service: 01/16/19 Principal diagnosis: PPD #2; s/p Interval history: See admission H & P, OB progress notes; OB delivery summary; and PP progress notes. Patient reports: appetite normal, voiding normally, pain well controlled, ambulating normally, other (Reports her head and neck is still hurting from epidural H/A. Reports that anesthia was in to see her this AM, and said that she could be d/c if she wanted. She asked if she would be prescribed something to go home with for pain from epidural H/A. No documentation from anesthesia at this time. Will f/u with anesthesia as to d/c plan.) Objective - Vital Signs Latest vital signs: Vital Signs Temp Pulse Resp BP Pulse Ox 01/16/19 08:00 97.7 F 68 18 104/59 01/16/19 00:00 98.7 F 81 18 117/78 01/15/19 16:54 97.8 F 83 18 110/74 96 01/15/19 12:00 97.6 F 75 18 116/52 98 Intake and Output 01/15/19 01/16/19 01/16/19 23:59 07:59 15:59 Intake Total 360 300 320 Balance 360 300 320 Intake: Oral 360 320 Intake, Free Water 300 Other: Total, Intake Amount 360 320 # Voids Void 1 - Exam Breasts: Present: deferred Cardiovascular: Present: Regular rate Lungs: Present: Normal air movement Abdomen: Present: soft, normal bowel sounds Uterus: Present: firm, fundal height below umbilicus (U-1) Extremities: Present: normal Deep Tendon Reflex Grade: Normal +2 - Labs Labs: Abnormal lab results 05/13/19 Range/Units 11:30 Hgb 8.8 L D (10.1-14.3) gm/dl Hct 26.8 L D (30.3-42.9) %
--- NOTE | 2019-01-16 11:26 | Progress Note ---
Subjective Date of service: 01/16/19 Principal diagnosis: PPD #2; s/p Interval history: Followed up on pt this am. Sitting at bedside feeding baby, c/o frontal headaches, increased pressure when sitting. Pt has been up oob, and continues to increase fluids, caffeine per instructions. Pt states pain medicine relieved symptoms, offered option of blood patch, pt declined at moment and is likely d/c'd today. Advised pt to come back to hospital for follow up care if symptoms dont improve or get worse over next several days. Objective - Constitutional Vitals: Vital Signs - 12hr 01/16/19 01/16/19 00:00 08:00 Temperature 98.7 F 97.7 F Pulse Rate 81 68 Respiratory 18 18 Rate Blood Pressure 117/78 104/59 [Left] - Labs CBC & Chem 7: 01/15/19 11:30 Labs: Abnormal lab results 01/15/19 Range/Units 11:30 Hgb 8.8 L D (10.1-14.3) gm/dl Hct 26.8 L D (30.3-42.9) % Medications & Allergies - Medications Allergies/Adverse Reactions: Allergies No Known Allergies Allergy (Unverified 01/07/17 15:38) Home Medications: Home Medications Medication Instructions Recorded Confirmed Last Taken Type Levothyroxine [Synthroid] 25 mcg PO QAM 01/07/17 01/15/19 07/06/18 History Pnv,Calcium 72/Iron/Folic Acid 1 each PO ONCE 01/07/17 01/15/19 01/12/19 History [Pnv Plus Multivit Tab] Active Medications: Generic Name Dose Route Start Last Admin Trade Name Freq PRN Reason Stop Dose Admin Acetaminophen/Hydrocodone Bitart 2 each 01/14/19 23:08 01/16/19 04:17 [place] 5/325 PO 2 each Q6H PRN Administration Pain, Moderate (4-6) Bisacodyl 10 mg 01/14/19 23:08 Dulcolax [place] BID PRN Constipation Ferrous Sulfate 325 mg 01/16/19 10:00 Feosol PO BID ISELA Ibuprofen 600 mg 01/14/19 23:45 01/16/19 04:18 Motrin PO 600 mg Q6HR ISELA Administration Magnesium Hydroxide 30 ml 01/14/19 23:08 Milk Of Magnesia PO HS PRN Constipation Multi-Ingredient Ointment 1 applic 01/14/19 23:08 Lansinoh TP PRN PRN Sore Nipples Sodium Chloride 10 ml 01/14/19 23:45 Sodium Chloride Flush Syringe 10 Ml IV PRN PRN LINE FLUSH Witch Teri/Glycerin 1 each 01/14/19 23:08 Tucks Pad TP PRN PRN Hemorrhoid/cleansing/soothing
--- NOTE | 2019-01-16 14:53 | Discharge Summary ---
Providers - Providers Date of Admission: 01/14/19 02:50 Date of discharge: 01/16/19 Attending physician: CHILO MATHEWS MD Primary care physician: CHILO MATHEWS MD Hospitalization Reason for admission: active labor Delivery: Episiotomy: none Laceration: none Other procedures: none complications: spinal headache Discharge diagnosis: IUP at term delivered [place] baby: male Hospital course: See admission H & P, OB delivery summary and PP progress notes Condition at discharge: Stable Disposition: DC-[id number] TO HOME OR SELFCARE - Discharge Diagnoses (1) Status post normal vaginal delivery Status: Acute (2) Anemia Status: Acute Qualifiers: Iron deficiency anemia type: other iron deficiency Qualified Code(s): D50.8 - Other iron deficiency anemias (3) Hypothyroidism Status: Acute Qualifiers: Hypothyroidism type: subclinical iodine-deficiency Qualified Code(s): E02 - Subclinical iodine-deficiency hypothyroidism Plan - Provider Discharge Summary Activity: routine, no sex for 6 weeks, no heavy lifting 4 weeks, no strenuous exercise Diet: routine Instructions: routine Additional instructions: [] Smoking cessation referral if applicable(refer to patient education folder for contact #) [] Refer to [facility] Booklet Call your doctor immediately for: * Fever > 100.5 * Heavy vaginal bleeding ( >1 pad per hour) * Severe persistent headache * Shortness of breath * Reddened, hot, painful area to leg or breast * Drainage or odor from incision. * Take Motrin and Tylenol for H/A and/or neck pain as needed. - Follow up plan Follow up: CHILO MATHEWS MD [Primary Care Provider] - 6 Weeks (Call office for follow up appointment) Forms: [facility] Discharge Summary
[2019-01-16 17:14] VITALS: BP 136/76
== END 2019-01-16 14:35 | disposition home or self-care (01) | DRG 775 ==
LOC: TRG 01:59 → LD 02:50 → OB 01-15 01:20
PROVIDERS: ADMIT Obstetrics & Gynecology; ATTEND Obstetrics & Gynecology
PROC: 10E0XZZ Delivery of Products of Conception, External Approach (ICD-10-PCS; principal; 2019-01-14)
PROC: 3E0R3BZ Introduction of Anesthetic Agent into Spinal Canal, Percutaneous Approach (ICD-10-PCS; 2019-01-14)
PROC: 00HU33Z Insertion of Infusion Device into Spinal Canal, Percutaneous Approach (ICD-10-PCS; 2019-01-14)
DX: O99.284 Endocrine, nutritional and metabolic diseases complicating childbirth (principal); E02 Subclinical iodine-deficiency hypothyroidism; O90.81 Anemia of the puerperium; D50.8 Other iron deficiency anemias; Z3A.39 39 weeks gestation of pregnancy; Z37.0 Single live birth
CPT/HCPCS: 36415; 85014; 85018; 85027; 86592; 86803; 86850; 86900; 86901; G0378; J2590; J3010; J7120